=== PATIENT | female | born 1960 | race Hispanic/Latino ===

== ENCOUNTER → 2017-12-20 | Day surgery (SDC) | payer OTHER ==
[~2017-12-20] MED LIST: ACETAMINOPHEN 1000 MG/100 ML IV ONE; BUPIVACAINE HCL 0.5% INJ 30 ML VIAL INJ ONE; CEFAZOLIN SOD 2 GM/D5W 50ML 50 ML IV ONE; DEXAMETHASONE SOD PHOS INJ 4 MG/ML VIAL ONE; FENTANYL CITRATE/PF 100MCG/2 ML INJ ONE; IBUPROFEN PO; LIDOCAINE HCL 2% LOCAL INJ 5 ML SDV VIAL INJ ONE; MIDAZOLAM HCL 2 MG/2 ML VIAL ONE; OMEPRAZOLE40 MG PO; ONDANSETRON HCL INJ 2 MG/ML VIAL ONE; PROPOFOL IV EMULSION 10 MG/ML 20 ML VIAL ONE; SEVOFLURANE INHAL SOLN 250 ML PEN BTL ONE
--- NOTE | 2017-12-20 10:15 | Operative Report ---
DATE OF PROCEDURE: December 20, 2017 PREOPERATIVE DIAGNOSIS: Bilateral carpal tunnel syndrome. POSTOPERATIVE DIAGNOSIS: Bilateral carpal tunnel syndrome. OPERATIONS/PROCEDURES PERFORMED: The patient underwent an open left carpal release and an open right carpal tunnel release. INDEPENDENT LIVING ADVISOR: None. ANESTHESIA: General endotracheal intubation anesthesia. IV FLUIDS: Per the anesthesia record. BRIEF DESCRIPTION OF THE PATIENT'S OPERATIVE PROCEDURE: Ms. Guerra was taken to the operating room and placed in the supine position on the operating table. Following induction of general anesthesia, as well as endotracheal intubation, the patient's bilateral extremities were examined anesthesia. There were no gross abnormalities. The patient's upper extremity was prepped and draped in a standard surgical fashion. The case was begun by providing the patient a left carpal tunnel release. An incision was made along the thenar palmar crease of the left hand. This incision was carried through the skin only. Blunt dissection was used to deepen the incision to the level of the transverse carpal ligament. The distal edge of the transverse carpal ligament was identified. A hemostat was placed beneath the ligament. The ligament was then divided in line with the skin incision. The floor of the carpal canal was evaluated and found to be intact. There were no gross abnormalities. The tourniquet was deflated and hemostasis was obtained. The wound was then irrigated, and closed in a single layer fashion. Attention was then turned to the right hand. Again, an incision was created along the thenar palmar crease. This incision was carried through skin only. Blunt dissection was used to deepen the incision to the level of the transverse carpal ligament. The distal edge of the transverse carpal ligament was identified, and hemostat was placed beneath the ligament. The transverse carpal ligament was then divided in its entirety. The floor of the carpal canal was evaluated and found to have no abnormalities. The tourniquet was deflated and hemostasis was obtained. The wound was copiously irrigated and closed in a skin layer fashion. Sterile dressings were applied to both hands. The patient was awakened and taken to the postanesthesia care unit in stable condition. Job#: [id number]
== END | disposition home or self-care (01) ==
LOC: OR 07:06
PROVIDERS: ATTEND Specialist
DX: G56.02 Carpal tunnel syndrome, left upper limb (principal); G56.01 Carpal tunnel syndrome, right upper limb; M19.90 Unspecified osteoarthritis, unspecified site; K21.9 Gastro-esophageal reflux disease without esophagitis; Z01.810 Encounter for preprocedural cardiovascular examination
CPT/HCPCS: 64721; 93005; J1100; J2001; J2250; J2405

== ENCOUNTER 2018-01-25 10:00 | Outpatient (RCR) | payer OTHER ==
[~2018-01-25 10:00] MED LIST changes: -ACETAMINOPHEN 1000 MG/100 ML IV ONE; -BUPIVACAINE HCL 0.5% INJ 30 ML VIAL INJ ONE; -CEFAZOLIN SOD 2 GM/D5W 50ML 50 ML IV ONE; -DEXAMETHASONE SOD PHOS INJ 4 MG/ML VIAL ONE; -FENTANYL CITRATE/PF 100MCG/2 ML INJ ONE; -LIDOCAINE HCL 2% LOCAL INJ 5 ML SDV VIAL INJ ONE; -MIDAZOLAM HCL 2 MG/2 ML VIAL ONE; -ONDANSETRON HCL INJ 2 MG/ML VIAL ONE; -PROPOFOL IV EMULSION 10 MG/ML 20 ML VIAL ONE; -SEVOFLURANE INHAL SOLN 250 ML PEN BTL ONE
== END 2018-01-29 ==
LOC: OT 10:00
PROVIDERS: ATTEND Specialist
DX: G56.03 Carpal tunnel syndrome, bilateral upper limbs (principal); M25.632 Stiffness of left wrist, not elsewhere classified; M25.631 Stiffness of right wrist, not elsewhere classified; R53.1 Weakness; R20.9 Unspecified disturbances of skin sensation

== ENCOUNTER 2018-02-20 09:00 | Outpatient (RCR) | payer OTHER | END 2018-03-01 | LOC: OT 09:00 | PROVIDERS: ATTEND Specialist | DX: G56.03 Carpal tunnel syndrome, bilateral upper limbs (principal) | CPT/HCPCS: 97139 ==

== ENCOUNTER → 2021-11-08 | Outpatient (CLI) | payer BC | LOC: MRI 13:13 | PROVIDERS: ATTEND Podiatrist Foot & Ankle Surgery | DX: M54.16 Radiculopathy, lumbar region (principal) | CPT/HCPCS: 72148 ==

== ENCOUNTER 2024-07-27 21:29 | Emergency (ER) | payer BC, OTHER ==
[~2024-07-27] VITALS: Ht 154.9 cm; Wt 62.6 kg
[2024-07-27 21:34] VITALS: PULSE 72; RESP 20; TEMP 98; O2SAT 100
[2024-07-27] MEDS: METHYLPREDNISOLONE SOD SUCC 125 MG/2ML VIAL IM ONE (21:42)
[2024-07-27] MEDS ORDERED: MEDROL4 M2 PO (21:44)
== END 2024-07-27 21:53 | disposition home or self-care (01) ==
LOC: ER 21:35
DX: L25.0 Unspecified contact dermatitis due to cosmetics (principal); E78.5 Hyperlipidemia, unspecified; L71.9 Rosacea, unspecified
CPT/HCPCS: 99282; J2919